=== PATIENT | female | born 1935 | race American Indian/Alaskan Native ===

== ENCOUNTER 2019-09-28 06:16 | Day surgery (SDC) | payer MEDICARE ==
--- NOTE | 2019-09-28 07:37 | Anesthesia Consultation ---
Anesthesia Consult and Med Hx Date of service: 09/28/19 - Airway Anesthetic Teeth Evaluation: Good (some broken off teeth upper left) ROM Head & Neck: Adequate Mental/Hyoid Distance: Adequate Mallampati Class: Class III Intubation Access Assessment: Possibly Difficult - Pre-Operative Health Status ASA Pre-Surgery Classification: ASA3 Proposed Anesthetic Plan: MAC - Cardiovascular System Hx Hypertension: Yes Hx Coronary Artery Disease: No (high cholesterol) - Endocrine Hx Insulin Dependent Diabetes: Yes (on insulin last 4 years) - Other Systems Hx Obesity: Yes
--- NOTE | 2019-09-28 07:38 | Anesthesia Day of Surgery ---
Anesthesia Day of Surgery - Day of Surgery Patient Examined: Yes Patient H&P Reviewed: Yes Patient is NPO: Yes
[2019-09-28] MEDS ORDERED: SODIUM CHLORIDE 0.9% 1000 ML 1,000 ML IV SCH (08:00)
[2019-09-28] MEDS ORDERED: LIDOCAINE MPF (2%) 20 MG/1 ML VIAL 5 ML ONE (08:30)
[2019-09-28] MEDS ORDERED: PROPOFOL 200 MG/20 ML VIAL IV ONE ×2 (08:33)
--- NOTE | 2019-09-28 08:57 | Procedure Note ---
Date of procedure: 09/28/19 Pre-op diagnosis: Dyspepsia Post-op diagnosis: other (Gastric (antral) Ulcer/ Shallow, Duodenal Ulcer/Gastritis/ Moderate,Erosive Esophagitis) Procedure: EGD with Biopsy Anesthesia: MAC Surgeon: CARLITO CARDENAS Estimated blood loss: minimal Pathology: list Specimen disposition: to lab Condition: stable Disposition: same day (Avoid aspirin and NSAID and anticoagulatns for 4 days; otherwise resume home medication. Treat with PPI and follow up in 1 to 2 weeks ([phone]).)
--- NOTE | 2019-09-28 09:00 | Operative Report ---
PROCEDURE: Esophagogastroduodenoscopy with biopsy. INDICATIONS: An 84-year-old slightly obese -[place] female with an underlying history of diabetes mellitus type 2, hypertension, who has lately been having dyspeptic symptoms. EGD was done to rule out for possible associated peptic ulcer disease. DESCRIPTION OF PROCEDURE: The procedure was done after getting informed consent with MAC anesthesia. Instrument was passed through the hypopharynx into the esophagus, which showed moderate erosive esophagitis, biopsied and photodocumentation was done from the distal esophagus to assess for the severity of the erosive esophagitis. The stomach showed an antral ulcer as well as gastritis. The pylorus was patent. The duodenum in the bulb showed normal mucosa, but there was some shallow ulcer noted in the second part of the duodenum. Biopsy was done from the gastric antrum, gastric body and angular incisura to rule out for H. pylori and atrophic gastritis. There was minimal bleeding associated with the procedure. No complications associated with the procedure. ASSESSMENT: Dyspepsia, gastric ulcer involving the antrum gastritis, small duodenal ulcer, moderate erosive esophagitis. PLAN: To encourage the patient avoid aspirin and aspirin-related products and anticoagulants for the next 4 days, otherwise resume home medication. Follow up in the office in 1-2 weeks' time and if the patient is noted to be positive for H. pylori, the patient will be treated for that and further adjustment will be done according to the biopsy findings. The procedure was done in the GI lab with assistance of the GI lab team, which included RNAlexia with assistance of abdi Alaniz and with assistance of Anesthesia. JOB# [id number] GABRIELLA/MICKY
[2019-09-28 10:50] VITALS: BP 144/64
--- NOTE | 2019-09-28 11:09 | Post Anesthesia Evaluation ---
- Post Anesthesia Evaluation Patient Participated: Yes Airway Patent: Yes Stable Respiratory Function: Yes Nausea/Vomiting: No Temp > 96.8F: Yes Pain Manageable: Yes Adequeate Hydration: Yes Anesthesia Complications: No Block Receding Appropriately: Not Applicable Patient on Ventilator: No
== END 2019-09-28 06:17 | disposition home or self-care (01) ==
LOC: GIO 06:16
DX: K30 Functional dyspepsia (principal); K29.50 Unspecified chronic gastritis without bleeding; K21.0 Gastro-esophageal reflux disease with esophagitis; E11.39 Type 2 diabetes mellitus with other diabetic ophthalmic complication; H40.9 Unspecified glaucoma; K26.9 Duodenal ulcer, unspecified as acute or chronic, without hemorrhage or perforation; I10 Essential (primary) hypertension; Z90.49 Acquired absence of other specified parts of digestive tract; Z98.51 Tubal ligation status; Z98.890 Other specified postprocedural states; Z79.82 Long term (current) use of aspirin; Z79.899 Other long term (current) drug therapy
CPT/HCPCS: 43239; 88305; 88342; J2704; J7030; 82962; 88312